=== PATIENT | male | born 1980 | race Caucasian/White ===

== ENCOUNTER 2017-03-06 10:37 | Emergency (ER) | payer OTHER ==
[~2017-03-06] VITALS: Ht 170.2 cm; Wt 96.5 kg
[~2017-03-06 10:37] MED LIST: INDOCIN50 MG PO; INDOMETHACIN50 MG PO; LIDOCAINE20 MG/1 M5 PO; NOHOMEMEDS; ROBITUSSIN DM118 ML PO
[2017-03-06] MEDS ORDERED: CLONIDINE HCL0.2 MG PO (11:07)
[2017-03-06] MEDS ORDERED: FENOFIBRATE160 M1 PO (11:08)
[2017-03-06] MEDS ORDERED: BUPROPION HCL150 M2 PO (11:08)
[2017-03-06 11:42] VITALS: BP 124/90
== END 2017-03-06 11:42 | disposition home or self-care (01) ==
LOC: EME 10:37
DX: F10.10 Alcohol abuse, uncomplicated (principal); I10 Essential (primary) hypertension; Z87.442 Personal history of urinary calculi; Z87.891 Personal history of nicotine dependence
CPT/HCPCS: 99281; 99284

== ENCOUNTER 2017-03-29 18:53 | Emergency (ER) | payer OTHER ==
[~2017-03-29] VITALS: Ht 170.2 cm; Wt 92.4 kg
[~2017-03-29 18:53] MED LIST changes: +BUPROPION HCL150 M2 PO; +CLONIDINE HCL0.2 MG PO; +FENOFIBRATE160 M1 PO
[2017-03-29 18:59] VITALS: BP 150/97
== END 2017-03-29 23:33 | disposition left against medical advice (07) ==
LOC: EME 18:53
DX: F10.230 Alcohol dependence with withdrawal, uncomplicated (principal); Z73.3 Stress, not elsewhere classified; R11.10 Vomiting, unspecified; Z53.21 Procedure and treatment not carried out due to patient leaving prior to being seen by health care provider
CPT/HCPCS: 80048; 84484; 85027

== ENCOUNTER 2017-10-11 11:46 | Emergency (ER) | payer SELFPAY ==
[~2017-10-11] VITALS: Ht 170.2 cm; Wt 88.5 kg
[2017-10-11 12:38] LABS: HEMATOCRIT 46.4 % (38.0-50.0); MCH 33.2 PG (29.0-34.0); MCHC 35.1 G/DL (30.0-36.0); MCV 94.5 FL (86-99); MEAN PLAT.VOLUME 9.6 uM^3 (9.0-12.4); PLATELET COUNT 313 K/uL (156-360); RBC DIS.WIDTH-CV 12.6 % (11.8-14.6); RBC DIS.WIDTH-SD 43.7 % (39-53); RED BLOOD COUNT 4.91 M/uL (4.00-5.50); WHITE BLOOD COUNT 9.8 K/uL (4.1-10.2)
[2017-10-11 12:48] LABS: CHLORIDE 106 mEq/L (99-109); POTASSIUM 3.4 mEq/L (3.7-5.4); SODIUM 139 mEq/L (136-147)
[2017-10-11 12:50] LABS: GLUCOSE 142 mg/dL (70-99)
[2017-10-11 12:52] LABS: ANION GAP 16 MEQ/L (2-14); TOTAL BILIRUBIN 0.9 mg/dL (0.0-1.0)
[2017-10-11 12:54] LABS: ALKALINE PHOSPHATASE 77 IU/L (3-129); GFR ESTIMATE (CALCULATED) > 59 mL/min/
[2017-10-11 12:55] LABS: UREA NITROGEN (BUN) 9 mg/dL (9-23)
[2017-10-11 13:37] LABS: ADD MIUA? YES; BILIRUBIN NEGATIVE; BLOOD SMALL; COLOR YELLOW ((YELLOW)); GLUCOSE (STRIP) NEGATIVE; KETONES NEGATIVE; LEUKOCYTES NEGATIVE; NITRITE NEGATIVE; PROTEIN (STRIP) NEGATIVE; SPECIFIC GRAVITY 1.008 (1.000-1.030); UROBILINOGEN 0.2 MG/DL (0.2-1.0)
[2017-10-11 13:40] LABS: BACTERIA NONE SEEN /HPF; EPITHELIAL CELLS NONE SEEN /HPF; MUCUS NONE SEEN /LPF; RED BLOOD CELLS 0-5 /HPF (0-5); UCUL ADDED? NO; WHITE BLOOD CELLS 0-5 /HPF (0-5)
[2017-10-11] MEDS ORDERED: ONE DAILY COMP1 EACH PO (14:24)
[2017-10-11] MEDS ORDERED: B-1100 MG PO (14:24)
[2017-10-11] MEDS ORDERED: BENTYL20 MG PO (14:24)
[2017-10-11] MEDS ORDERED: LIBRIUM25 MG PO (14:24)
[2017-10-11 14:47] VITALS: BP 122/81
== END 2017-10-11 14:50 | disposition home or self-care (01) ==
LOC: EME 11:46
DX: R10.84 Generalized abdominal pain (principal); R19.7 Diarrhea, unspecified; F10.10 Alcohol abuse, uncomplicated; F12.90 Cannabis use, unspecified, uncomplicated; F17.200 Nicotine dependence, unspecified, uncomplicated; J30.9 Allergic rhinitis, unspecified; I10 Essential (primary) hypertension; Z87.442 Personal history of urinary calculi
CPT/HCPCS: 80053; 81003; 85027; 99281; 99284